=== PATIENT | male | born 1955 | race Hispanic/Latino ===

== ENCOUNTER 2017-04-18 14:12 | Emergency (ER) | payer MEDICAID, SELFPAY ==
[2017-04-18] MEDS ORDERED: Dexamethasone 4 mg/ml Vial ONE (16:13)
--- NOTE | 2017-04-19 00:39 | HP ---
HISTORY OF PRESENT ILLNESS: Mr. Gomez is a 61-year-old gentleman who presented to the [facility] Department for evaluation of an intracranial mass, it was found on a CT scan roughly a week ago. He was sent for an imaging that he had performed this morning. The radiologist read his imagi ng and had him come to the emergency department, given his findings. On talking to the family, ____ _, his clinical presentation is mostly concerned with changes in mentality, mentation, and attitude, then more recently one of his family members has noticed some changes in gait. Findings on both e CT and MRI show an extra-axial mass that homogeneously enhances likely originating from the dura o verlying the left frontal lobe. The lesion is expansive and compressive to the left frontal and par ietal lobes with a fair amount of vasogenic edema. The mass measures in maximum dimensions roughly 9 x 6 cm. Given its location and size, I think this is very likely the source of his issues. He is previously unaware of any mass after this point. PAST MEDICAL HISTORY: Hemorrhagic cerebrovascular accident, vascular clip in 01/2017. PAST SURGICAL HISTORY: No listed surgical history. CURRENT MEDICATIONS: Invokana, metformin, citalopram, Aricept as well as multivitamin. ALLERGIES: No known drug allergies. PHYSICAL EXAMINATION: GENERAL: The patient is alert and oriented x3. 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 He has a little bit of limitation to the left upper quadrant of his face in terms of facial motor function, but otherwise i s intact. HEENT: Pupils are equal, round, and reactive to light. Extraocular movements are intact. ASSESSMENT: Intracranial mass. PLAN: Discussed with the family and the patient at bedside extensively about his condition and that we will likely recommend not admitting him today, but since starting him on 4 mg of Decadron b.i.d. , he needs to be aware that this could very well affect his blood sugars and needs to be vigilant a= in following his numbers. I would like to repeat a Brainlab protocol MRI with and without contrast here at either [place] or [facility] on Friday and then plan for surgical resection from there. The gladys vargas is understanding and I answered all questions. The patient will be sent home this evening.
== END 2017-04-18 19:04 | disposition home or self-care (01) ==
LOC: ERS 14:12 → EEVIPCON 14:12 → ERS 19:04
DX: G93.89 Other specified disorders of brain (principal); E11.9 Type 2 diabetes mellitus without complications; E78.5 Hyperlipidemia, unspecified; F32.9 Major depressive disorder, single episode, unspecified; Z79.84 Long term (current) use of oral hypoglycemic drugs; Z79.899 Other long term (current) drug therapy
CPT/HCPCS: 96374; J1100

== ENCOUNTER 2017-04-21 14:16 | Outpatient (CLI) | payer MEDICAID, OTHER ==
[~2017-04-21 14:16] MED LIST: Gadobenate Dimeglumine 529 MG/ML (10ML VIAL) ONE
--- NOTE | 2017-04-21 16:50 | MRI ---
BRAIN MRI WITH AND WITHOUT CONTRAST: Date: 04/21/17 COMPARISON: 04/18/17. HISTORY: Left-sided mass, palpable abnormality in the left frontal scalp, mass lesion seen on prior imaging. TECHNIQUE: Multiplanar, multisequence MR imaging of the brain obtained with and without contrast. FINDINGS: There is a large, complex, lobulated, heterogeneous, extra-axial mass lesion in the left frontal reg ion. On precontrast T1-weighted imaging, it is primarily hypointense with numerous internal punctate foci of increased signal intensity which may signify punctate foci of hemorrhage and/or calcificati on. This lesion directly invades the left frontal calvarium with permeative calvarial destruction. T 2-weighted imaging demonstrates numerous flow-voids within this lesion, as well as within the fronta l calvarium overlying the lesion. There is severe associated mass effect and prominent associated va sogenic edema. There are numerous flow-voids within the adjacent brain parenchyma posterior and infe rior to the lesion suggesting numerous feeding arteries, as well as possibly draining veins. There i s severe associated left to right midline shift of at least 1.4 cm at the level of the septum pelluc idum anteriorly. The left anterior cerebral artery is deviated 1.9 cm across midline to the right. T his lesion demonstrates marked enhancement on postcontrast imaging. There is a portion of the lesion along its superolateral margin which demonstrates restricted diffusion suggesting high tumor cellul arity. The adjacent vasogenic edema involves the left frontal lobe and left temporal lobe, as well a s a portion of the medial right frontal lobe. No evidence for acute infarction is seen. The mass demonstrates diffuse heterogeneity on T2-weighted imaging, overall isointense on T2. Arterial flow-voids at the axial level of the skull base appear grossly unremarkable. The postcontrast imaging demonstrates the size of the complex enhancing extra-axial left frontal mas s to measure approximately 8.2 cm in AP dimension, 6.4 cm in transverse dimension, and 5.6 cm in wallpaper scraper niocaudal dimension. The lesion is inseparable from the anterior and superior aspect of the superior sagittal sinus. The imaged paranasal sinuses/mastoid air cells are well aerated. No additional enhancing lesions are noted. IMPRESSION: Large, enhancing, heterogeneous left-sided extra-axial mass with involvement of the adjacent calvari um. 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 Alternative consideration s would include an aggressive extra-axial metastatic lesion. There is prominent associated vasogenic edema and mass effect/midline shift. Results called to Dr. Butts at 1620 hours on 04/21/17. CODE CR. POS: TIFFANIE
== END 2017-04-21 14:17 | disposition home or self-care (01) ==
LOC: SCSMRI 14:16
PROVIDERS: ATTEND Neurological Surgery
DX: C71.9 Malignant neoplasm of brain, unspecified (principal)
CPT/HCPCS: 70553

== ENCOUNTER 2017-04-28 09:14 | Inpatient (IN) | payer OTHER, SELFPAY ==
[2017-04-28] MEDS ORDERED: Heparin 10,000 UNITS/1 ML VIAL ONE (09:55)
[2017-04-28] MEDS ORDERED: Iopamidol 370 76% 100 ML VIAL ONE (16:26)
[2017-04-28] MEDS ORDERED: Iopamidol 370 76% 50 ML VIAL FS ONE (16:26)
[2017-04-28] MEDS: Sodium Chloride 0.9% 1,000 ML IV SCH ×2 (19:40→23:55)
--- NOTE | 2017-04-28 19:54 | HP ---
HISTORY OF PRESENT ILLNESS: Mr. Gomez is a 61-year-old male who presents to our office with consultation after having personality changes, gait instability and subsequently found on an MRI scan of the brain with and without contrast at [place] a left frontal brain mass that is extra-axial and large in nature. The scan was discussed with the family and it looks like as it is a large extra- axial tumor with great deal of vascularity because of heterogenicity. Dr. Orantes discussed the plan to perform the left frontal approach to resect this large tumor. He answered questions at the time we had about the procedure and the expectations of moving forward. He originally saw Dr. Butts and Preston Sainz in the clinic and was referred to Dr. Orantes. PAST MEDICAL HISTORY: Include type 2 diabetes and history of hyperlipidemia. PAST SURGICAL HISTORY: No past surgical history. PSYCHIATRIC HISTORY: Includes depression. SOCIAL HISTORY: The patient denies any alcohol or drug use and has no smoking history. ALLERGIES: No known drug allergies. CURRENT MEDICATIONS: 1. Metformin 850 mg oral once a day. 2. Donepezil 5 mg oral once a day. 3. Citalopram 20 mg oral once a day. REVIEW OF SYSTEMS: Ten-point review of systems is completed and is otherwise negative unless stated in the above HPI. PHYSICAL EXAMINATION: VITAL SIGNS: Stable. GENERAL: The patient is alert and oriented x3, appears to be in no shortness of breath. HENT: Normocephalic and atraumatic. Hearing intact. Moist mucous membranes. Trachea midline. EYES: Pupils are equal and reactive to light. Extraocular muscles are intact. Sclerae are white and nonicteric. NECK: Patient has no signs of rigidity. Trachea is midline. RESPIRATORY: The patient has bilateral symmetric chest rise, appears to have no shortness of breath. CARDIOVASCULAR: The patient has regular rate and rhythm. Normal S1 and S2 heart sounds. There is no distal cyanosis or clubbing noted. EXTREMITIES: Upper extremity; patient has bilateral symmetric strength in the upper extremity. Brachial pulses and radial pulses in the upper extremities bilaterally are +2 and normal. There is normal range of motion. Lower extremity; the patient has bilateral symmetric strength in his lower extremity, range of motion is normal. NEUROLOGIC: Cranial nerves II-XII are grossly intact. His speech is fluent. He is oriented to person, place and time. There were no focal motor deficits; however, he was off balance and there have been some personality changes noted by family. ASSESSMENT: Mr. Gomez is a 61-year-old male with a large left frontal tumor that was found on MRI scan. PLAN: Dr. Orantes offered a left frontal craniotomy with tumor removal to help with his symptoms. He will first undergo an embolization of the tumor with Dr. Butts on 04/28/2017 and then the left frontal tumor will be removed on 04/29/2017. If there are any further questions, please feel free to contact Neurosurgery. The risks, benefits, and possible complications of surgery were discussed with the patient and he is in agreement with moving forward with the surgery despite the risks. THANIA
[2017-04-28] MEDS ORDERED: Citalopram 20 MG TAB PO SCH (21:00)
[2017-04-28] MEDS: Dexamethasone 4 MG TAB PO SCH (21:03)
[2017-04-29 00:35] VITALS: BMI 27.4
[2017-04-29] MEDS ORDERED: Midazolam HCl 2 mg/2 ml Vial ONE (06:04)
[2017-04-29] MEDS ORDERED: Fentanyl 250 MCG/5 ML VIAL ONE ×3 (06:04→12:52)
[2017-04-29] MEDS ORDERED: Lidocaine 1% w/Epinephrine 1:200K 30 ML VIAL ONE ×2 (06:22→08:44)
[2017-04-29] MEDS ORDERED: Bacitracin Zinc Ointment 30 gm TUBE ONE (06:24)
[2017-04-29] MEDS ORDERED: Thrombin 5000 UNITS/5 ML VIAL ONE ×3 (06:24→10:57)
[2017-04-29] MEDS ORDERED: Papaverine 60 MG/2 ML VIAL ONE (06:24)
[2017-04-29] MEDS ORDERED: Sodium Chloride 0.9% 20 ML ONE (06:24)
[2017-04-29] MEDS ORDERED: CEFAZOLIN 2 GM in Sodium Chloride 0.9% 100 ML IVPB ONE (06:40)
[2017-04-29] MEDS ORDERED: CEFAZOLIN/Water 2 GM/20 ML SYRINGE SLOW IVP SCH (06:50)
[2017-04-29] MEDS ORDERED: levETIRAcetam 1000 MG/100 ML PREMIX BAG ONE (07:03)
[2017-04-29] MEDS ORDERED: levETIRAcetam 500 MG/100 ML PREMIX BAG ONE (07:03)
[2017-04-29] MEDS ORDERED: Propofol 200 MG/20 ML VIAL ONE (07:22)
[2017-04-29] MEDS ORDERED: Vecuronium 10 MG VIAL ONE (07:22)
[2017-04-29] MEDS ORDERED: PHENYLEPHRINE-NS 100 MCG/ML 10 ML SYRINGE ONE (07:22)
[2017-04-29] MEDS ORDERED: Lidocaine 1% PF 5 ML VIAL ONE (07:22)
[2017-04-29] MEDS ORDERED: Dexamethasone 20 MG/5 ML VIAL ONE (07:22)
[2017-04-29] MEDS ORDERED: Ondansetron HCl/PF 4 MG/2 ML Vial ONE (07:22)
--- NOTE | 2017-04-29 07:26 | PRG ---
DATE OF SERVICE: 04/29/2017 I saw Mr. Gomez this morning. Dr. Roman Butts did embolization of his tumor yesterday. I met him in the clinic. He has a large aggressive extraaxial tumor affecting the left hemisphere. 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 He has a significant number of flow voids and surgical resection would be challenging. In the clinic, I reviewed all the risks, benefits, indications, alternatives, and expected outcomes from surgery. I answered questions briefly this morning and they are prepared for operative interve ntion today. We will take him to the operating room and I do not expect to be finished until late t onight.
[2017-04-29] MEDS ORDERED: Mannitol 12.5 GM/50 ML ONE ×2 (08:08→10:57)
[2017-04-29] MEDS ORDERED: Donepezil HCl 5 MG TAB PO SCH (09:00)
[2017-04-29] MEDS ORDERED: Sodium Chloride 0.9% 30 ML ONE (10:32)
[2017-04-29] MEDS ORDERED: CEFAZOLIN 1 GM VIAL ONE (12:39)
[2017-04-29] MEDS ORDERED: Ondansetron HCl/PF 4 MG/2 ML Vial IVP PRN (15:47)
[2017-04-29] MEDS ORDERED: Morphine 4 MG/ML Carpuject SLOW IVP PRN ×2 (15:47→16:21)
[2017-04-29] MEDS ORDERED: Docusate 100 MG CAP PO PRN (15:47)
[2017-04-29] MEDS ORDERED: Acetaminophen 325 MG TAB PO PRN (15:47)
[2017-04-29] MEDS ORDERED: hydrALAZINE 20 MG/ML VIAL SLOW IVP PRN (16:00)
[2017-04-29] MEDS: FLU VACC QS2017-18 36 mo. & older 0.5 ML SYRINGE IM ONE (16:04)
[2017-04-29] MEDS: Dexamethasone 4 MG TAB PO SCH (16:04)
[2017-04-29] MEDS: Sodium Chloride 0.9% 1,000 ML IV SCH (16:10)
[2017-04-29] MEDS ORDERED: Sedation Protocol FS ONE (16:18)
[2017-04-29] MEDS ORDERED: Lorazepam 2 MG/ML VIAL SLOW IVP PRN (16:21)
[2017-04-29] MEDS ORDERED: Fentanyl 20 MCG/ML 250 ML IVPB SCH (16:21)
[2017-04-29] MEDS ORDERED: DISCONTINUE PREVIOUS NARCOTIC PAIN MEDICATIONS AND BENZODIAZEPINES FS SCH (16:21)
[2017-04-29 16:23] LABS: Oxyhemoglobin 96.6 % (94.0-97.0); Sodium 138 mmol/L (135-148)
[2017-04-29 16:24] LABS: Mechanical Tidal Volume 500 ml; Mode SIMV; Pressure Support 10 cmH2O; Vent YES
[2017-04-29] MEDS ORDERED: Norepinephrine 8 MG/0.9% NS 250 ML ONE (16:48)
[2017-04-29] MEDS: Propofol 1,000 MG/100 ML VIAL IV PRN (16:55)
[2017-04-29] MEDS ORDERED: Norepinephrine 8 MG/250 ML BAG IVPB PRN (17:02)
[2017-04-29] MEDS ORDERED: Sodium Chloride 0.9% 1,000 ML IV SCH (17:15)
[2017-04-29 17:20] LABS: Hematocrit 43.4 % (42.0-52.0); Red Blood Cell (RBC) Count 4.97 mill/uL (4.70-6.10); White Blood Cell (WBC) Count 20.6 thou/uL (4.8-10.8)
[2017-04-29 17:39] LABS: Anion Gap 11 mmol/L (10-20); BUN (Urea Nitrogen) 19 mg/dL (8.4-25.7); Calc. Creatinine Clearance 102 mL/min (70-130); Calcium 8.4 mg/dL (7.8-10.44); Carbon Dioxide 21 mmol/L (22-29); Chloride 107 mmol/L (98-107); Estimated GFR-MDRD Greater than 90
[2017-04-29 17:46] LABS: Neutrophil 83 % (42-75)
[2017-04-29] MEDS: Dexamethasone 4 mg/ml Vial SLOW IVP SCH ×2 (17:51→23:58)
[2017-04-29] MEDS ORDERED: Dexamethasone 4 MG TAB PO SCH ×2 (18:00→21:00)
--- NOTE | 2017-04-29 19:43 | RAD ---
PORTABLE CHEST ONE VIEW: 04/29/17 at 5:17 p.m. HISTORY: Respiratory failure. FINDINGS/IMPRESSION: There is an endotracheal tube with tip at the origin of the right main bronchus. There is a right arauz bclavian central line with tip in the deep right atrium. No pneumothoraces or large effusions are se en. There are atelectatic changes in the left lung base. There is gaseous distention of the stomach. Findings were called over the telephone to the patient's nurse, Ivelisse Chun, at 5:24 p.m. POS: [facility]
[2017-04-29] MEDS ORDERED: STERILE WATER IV SCH (19:45)
[2017-04-29] MEDS ORDERED: SODIUM CHLORIDE IV SCH (19:45)
[2017-04-29] MEDS ORDERED: Citalopram 20 MG TAB PO SCH (21:00)
[2017-04-29] MEDS ORDERED: Non-Formulary Item 1 EACH (Insulin Degludec [Tresiba Flextouch U-100] 12 UNIT) SQ SCH (21:00)
[2017-04-29] MEDS ORDERED: PANTOPRAZOLE SODIUM 40 MG PO SCH (21:00)
[2017-04-29] MEDS: CEFAZOLIN/Water 2 GM/20 ML SYRINGE SLOW IVP SCH (22:19)
[2017-04-29] MEDS: Famotidine/PF 20 mg/2ml Vial SLOW IVP SCH (22:20)
--- NOTE | 2017-04-30 00:44 | CON ---
DATE OF CONSULTATION: 04/29/2017 HISTORY OF PRESENT ILLNESS: Mr. Gomez is a 61-year-old male, who reportedly had change in gait and personality recently. MRI showed left frontal brain mass. It was felt most likely be a malignant p rocess. He has undergone attempted embolization of his vascular tumor and today he has undergone re section. There is fair amount of blood loss in the OR, I have discussed this with the [employer]. He has been up to this point appropriately volume resuscitated in my opinion. He was transferred to the ICU, mechanically ventilated. PAST MEDICAL HISTORY: Remarkable for diabetes and lipid disorder. SOCIAL HISTORY: He is nonsmoker, nondrinker. PAST SURGICAL HISTORY: He has had (I am told) a traumatic amputation of his right upper extremity i n the distant past. MEDICATIONS: He is on metformin, donepezil and citalopram prior to admission. REVIEW OF SYSTEMS: Not obtainable. PHYSICAL EXAMINATION: VITAL SIGNS: Blood pressure is 94/61, heart rate is 190 in sinus rhythm, respiratory rate is 10-12 per mechanical ventilation, oximetry is 95%. GENERAL: He is still sedated from surgery, has bandage on his head. He is orally intubated. LUNGS: He has bilateral equal breath sounds. HEART: Regular rhythm. S1 and S2 are normal. ABDOMEN: Soft and nontender. EXTREMITIES: Without asymmetry. LABORATORY DATA: There is no recent lab in our system other than blood glucose. IMPRESSION: Postop mechanical ventilation after resection of a large vascular probably malignant br ain tumor. PLAN: Mechanical ventilation, steroids, nebulizer treatments, serial exams, sedation protocol. Chandrika rosurgery was requested. His blood pressure will be kept down, ideally I am told less than 120 syst olic.
--- NOTE | 2017-04-30 01:15 | OP ---
DATE OF PROCEDURE: 04/29/2017 NEUROSURGERY OPERATIVE REPORT SURGEON: Chace Orantes M.D. BLENDING MACHINE OPERATOR: Paulo Fam PA-C Brief assistance with Dr. Napoleon Sharpe PREOPERATIVE INDICATION: Make diagnosis to prevent neurological deterioration. PREOPERATIVE DIAGNOSIS: Large extraaxial lesion left hemisphere with mass effect on the left fronta l lobe. POSTOPERATIVE DIAGNOSIS: Large extraaxial lesion left hemisphere with mass effect on the left front al lobe. OPERATIVE PROCEDURES: BrainLAB stereotactic assisted craniotomy, resection of extraaxial tumor, rem oval of bone lesion, and cranioplasty for defect, diameter of 5 cm, operating microscope. PREOPERATIVE MEDICATION: Ancef 2 grams IV, Keppra 1000 mg IV, mannitol 62.5 g IV. DRAIN NUMBER: One. DRAIN TYPE: 10-Syriac Dave. DESCRIPTION OF PROCEDURE: The patient was brought to the operating room. General endotracheal anes thesia was induced. The patient was positioned supine on the operating table with his head turned s lightly to the right. The head was immobilized in [place] alexandru headholder. Using the preoperati ve BrainLAB protocol MRI scan, the BrainLAB system, and surface registration technique, we generated stereotactic navigational space around the patient's head. We verified our registration with surfa ce landmarks and found it to be excellent. We then planned curvilinear incision starting at the awng t of zygoma on the left, curving behind the hairline and then back again towards the midpoint of the forehead and then past midline behind the hairline on the left side as well. Under our planned inc ision, we infused local anesthetic with epinephrine. The scalp was sterilely prepped and draped. W e opened carefully with a 10 blade knife. Once through the skin, we used bipolar and monopolar caut neftaly to ensure excellent hemostasis given the large number of vessels coursing through the scalp. We used monopolar cautery to fold our scalp flap forward and held it in place under fishhook. We harv ested a piece of pericranium for a dural substitute and that was placed in bacitracin irrigation. W e fold the temporalis muscle inferiorly to allow us to place a javier hole at the frontal flores hole and the superior temporal line posteriorly, one in the midline of the forehead and one in the midline b ehind the coronal suture. We attempted to place javier holes with perforating bit, but the first javier hole was extremely bloody. Bone wax had to be used. We then used a ti javier to place all the other three javier holes. In a similar fashion, we attempted to use a router bit to cut our craniotom y, but the bone was again quite bloody, bone wax was needed and a 5 mm ti javier was used to fash ion our entire craniotomy. This was a long and tedious procedure, but in the end, we had excellent hemostasis of the bone in this fashion. Tumor had eroded through the bone in the left frontal regio n and as we folded the scalp flap off the field, we marked a 5-cm diameter section to remove prior t o replacement of the bone flap. The bone was placed in bacitracin irrigation as well. We immediate ly encountered tumor in the left frontal dura. This had eroded through the dura. We obtained hemos tasis carefully with bipolar cautery and then brought the operating microscope into the field. Under microscopic magnification and using microsurgical techniques, we carefully opened the dura. S imilar to the bone, there were numerous blood vessels coursing through the dura. We anticoagulated and cut carefully and circumferentially around the tumor. Once we had opened our dura parallel to o ur craniotomy opening 360 degrees around the tumor, we then turned our attention to the tumor resect ion. Using our [employer] navigation system, we identified the interface between tumor and brain easi ly. We started our dissection posteriorly and then laterally and then anteriorly. We developed a p sharron between edematous white matter and a large extraaxial lesion. As we dissected medially, there was some bleeding that needed more attention with bipolar cautery and pledgets of [place]. We contr olled this bleeding and noticed the tumor was beginning to swell a bit. We gave one more vial of ma nnitol. We placed silk sutures in the dura over the tumor and use this as retraction away from the brain. We then spread up our dissection, dissecting on the more firm surface of the tumor and coagu lating all the feeding vessels at the inferior margin of the tumor. We rolled this medially until w e encountered the dura of the interhemispheric falx. We then peeled the dura off the falx and the i nferior lateral portion of the superior sagittal sinus. There was some bleeding at the very last at tachment and then the specimen was freed. This was sent to pathology for histopathological diagnosi s. We irrigated copiously with bacitracin irrigation. Any brain swelling will be encountered durin g our resection abated quickly once the tumor resolved. Medially and laterally resection cavity had a bit of tumor left. We peeled that off the interhemispheric falx and the inferior portion of the superior sagittal sinus once again and controlled bleeding. Laterally, there was some tumor that tr act with the dura beyond her craniotomy flap for a few centimeters. We carefully, under the microsc ope, retracted the brain away from the dura and coagulated the surface of the dura where there was o bvious tumor. We coagulated copiously both in the epidural space and subdural space and replaced bi polar around the dura on both sides, any remaining dura was coagulated and charred in all directions so that no viable tumor cells were felt to be left. We irrigated copiously with bacitracin irrigat ion. The resection cavity had excellent hemostasis. We brought our periosteal tissue into the fiel d and sewed it in place in an interrupted fashion to the remnants of the dura. We then brought the craniotomy flap back into the field. With a routing bit, we cut out the tumor and then brought a wi re mesh in for cranioplasty. We fitted this to the defect and tacked it to the craniotomy bone with 4 mm titanium screws. [place] hole covers were replaced posteriorly on the craniotomy flap and then s crews were used to secure the flap to the patient's skull. We irrigated copiously with bacitracin i rrigation. We took the operating microscope out to the field before we placing the craniotomy flap. We tunneled the drain posteriorly through a separate stab incision. We reapproximated the tempora lis muscle. We closed the scalp in anatomic layers and we applied a sterile dressing. This was a c lean case and no contamination.
[2017-04-30 04:35] LABS: Band 1 % (5-11); Neutrophil 86 % (42-75); White Blood Cell (WBC) Count 17.8 thou/uL (4.8-10.8)
[2017-04-30 04:51] LABS: Anion Gap 8 mmol/L (10-20); BUN (Urea Nitrogen) 21 mg/dL (8.4-25.7); Calc. Creatinine Clearance 117 mL/min (70-130); Calcium 8.5 mg/dL (7.8-10.44); Carbon Dioxide 26 mmol/L (22-29); Chloride 109 mmol/L (98-107); Estimated GFR-MDRD Greater than 90
[2017-04-30] MEDS: Sodium Chloride 0.9% 1,000 ML IV SCH ×2 (05:24→20:30)
[2017-04-30] MEDS: CEFAZOLIN/Water 2 GM/20 ML SYRINGE SLOW IVP SCH ×3 (05:24→21:26)
[2017-04-30] MEDS: Dexamethasone 4 mg/ml Vial SLOW IVP SCH ×4 (06:06→23:22)
[2017-04-30 07:10] LABS: Oxyhemoglobin 97.3 % (94.0-97.0); Sodium 141 mmol/L (135-148)
[2017-04-30 07:12] LABS: Mechanical Tidal Volume 500 ml; Mode SIMV; Pressure Support 10 cmH2O; Vent YES
--- NOTE | 2017-04-30 07:13 | PRG ---
DATE OF SERVICE: 04/30/2017 Mr. Gomez is 1 day out from craniotomy for removal of a large extraaxial frontal lesion with bone er osion. He underwent stereotactic resection of the lesion as well as removal of a portion of the sku ll and cranioplasty. In the immediate postoperative hours there was some lability in the blood pressure. He received mae e IV fluid and boluses that leveled out and he has been neurologically well overnight. I am seeing Mr. Gomez this morning, he is awake. He is on the ventilator. He follows commands. En glish is his second language, but if I asked him in my limited Japanese to wiggle his fingers and toe s he does so quickly. He lifts the right arm stump off the bed as I show him what I want him to do. I do not find any new weakness. He is quite alert. I think he would be ready for extubation late r today. If he does well after extubation, remains stable until the afternoon, we will discuss sawyer sferring him to the general floor care if our critical care team agrees. We will taper him slowly o ff of Decadron over the next 4-8 days; he will remain on Keppra 500 b.i.d. and will await pathology to determine when and if postoperative radiation and/or chemotherapy might start.
[2017-04-30] MEDS ORDERED: metFORMIN 850 MG TAB PO SCH (08:00)
[2017-04-30] MEDS: Propofol 1,000 MG/100 ML VIAL IV PRN (08:22)
[2017-04-30] MEDS: Famotidine/PF 20 mg/2ml Vial SLOW IVP SCH ×2 (08:22→21:24)
--- NOTE | 2017-04-30 08:47 | RAD ---
PORTABLE AP CHEST: Date: 04-30-17 History: On ventilator, follow up evaluation. Comparison: 04-29-17 FINDINGS: Endotracheal tube is again noted in place but has been withdrawn with the tip now overlying T4 verte bral body above the level of the jessica. Right subclavian central venous catheter with tip overlying the right atrium. This exam is obtained in a shallow depth of inspiration accentuating the bronchov ascular markings. However, there is patchy increased parenchymal density in the retrocardiac region left lung base which may be related to atelectasis although pneumonia or aspiration pneumonitis romeo ot be excluded. There is atelectasis present at each lung base. No other interval change. IMPRESSION: 1. Patchy parenchymal opacity in the retrocardiac region left lung base which could be related to at electasis, pneumonia, or aspiration pneumonitis. Continued follow up is recommended. 2. Atelectasis at each lung base. 3. Endotracheal tube again noted in place but has been withdrawn and is now above the level of the c jarred. POS: [facility]
[2017-04-30] MEDS ORDERED: DONEPEZIL HCL 5 MG PO SCH (09:00)
[2017-04-30] MEDS ORDERED: Non-Formulary Item 1 EACH (Canagliflozin [Invokana] 100 MG) PO SCH (09:00)
[2017-04-30 09:19] LABS: Oxyhemoglobin 96.6 % (94.0-97.0); Sodium 137 mmol/L (135-148)
[2017-04-30 09:19] LABS: Oxyhemoglobin 97.2 % (94.0-97.0); Sodium 140 mmol/L (135-148)
[2017-04-30 09:19] LABS: Oxyhemoglobin 96.6 % (94.0-97.0); Sodium 139 mmol/L (135-148)
[2017-04-30 09:19] LABS: Oxyhemoglobin 96.2 % (94.0-97.0); Sodium 134 mmol/L (135-148)
[2017-04-30 09:34] LABS: Mode OR ABG; Vent YES
[2017-04-30 09:34] LABS: Mode OR ABG; Vent YES
[2017-04-30 09:34] LABS: Mode OR ABG; Vent YES
[2017-04-30 09:35] LABS: Mode OR ABG; Vent YES
--- NOTE | 2017-04-30 11:04 | PRG ---
DATE OF SERVICE: 04/30/2017 SUBJECTIVE: Mr. Gomez is a 61-year-old male who I saw in his room this morning. He is doing well. He is able to follow commands. There have been no acute events overnight in his neurologic status. There are no new deficits in his neurologic status noted. He is able to follow my finger with his eyes in all directions. He is able to raise his right arm and right hand to command. He is able to grasp my hand with his left hand on command. Yesterday, he had a sodium of 135. Bolus of 1.5 normal saline was given, 300 mL, which raised his sodium to 139. His vital signs overnight have been stable and he has had to have small amount of Levophed to keep his blood pressure elevated and even a low -dose of propofol. He is easily to awaken on the low-dose propofol. Today, we will work with physical therapy, and have him whenever critical care thinks it is safe to extubate, he can be extubated. We will keep him on Keppra for seizure prophylaxis and we will continue antibiotics, as the drain is still in place. If there are any further questions, please feel free to contact Neurosurgery. THANIA
[2017-04-30] MEDS ORDERED: Dextrose 5% in Water 1,000 ML IV PRN (16:21)
[2017-04-30] MEDS ORDERED: Dextrose 50% Abboject 50 ML SYRINGE IVP PRN (16:21)
--- NOTE | 2017-04-30 17:20 | PRG ---
DATE OF SERVICE: 04/30/2017 SUBJECTIVE: Mr. Guillermo Gomez was evaluated this morning. He is mechanically ventilated. He underwen t a spontaneous breathing trial. His pressure support turned down to 10 and his PEEP of 5, then his pressure support turned down to 5 and his PEEP is 0. He never became tachypneic. His minute volum e remains 7-8 liters a minute. He had no significant secretions. OBJECTIVE: GENERAL: He is awake and alert. VITAL SIGNS: Heart rate 72, respiratory rate 16, oximetry is 99% and blood pressure 106/74. LUNGS: Clear. HEART: Regular rhythm. ABDOMEN: Soft. LABORATORY DATA: White count 17.8, hemoglobin 14 and platelets 155. Sodium 139, potassium 4.1, chl oride 109, bicarbonate 26, BUN 21 and creatinine 0.7. Intake and output was positive 1196. IMPRESSION AND PLAN: Postoperative mechanical ventilation after resection of vascular brain tumor. Pray he was stable for extubation. This has been done successfully. He has been examined several times since then he remained stable. No respiratory distress. Critical care time was 35 minutes.
[2017-04-30] MEDS: INVOKANA 100 MG PO SCH ×2 (20:32→20:33)
[2017-04-30] MEDS: TRESIBA SC SCH ×2 (20:33→20:34)
[2017-04-30] MEDS: Insulin Regular 300 UNITS/3 ML VIAL SC PRN (22:16)
[2017-05-01] MEDS: CEFAZOLIN/Water 2 GM/20 ML SYRINGE SLOW IVP SCH ×3 (04:03→22:06)
[2017-05-01 04:47] LABS: Anion Gap 6 mmol/L (10-20); BUN (Urea Nitrogen) 23 mg/dL (8.4-25.7); Calc. Creatinine Clearance 140 mL/min (70-130); Calcium 8.3 mg/dL (7.8-10.44); Carbon Dioxide 27 mmol/L (22-29); Chloride 107 mmol/L (98-107); Estimated GFR-MDRD Greater than 90
[2017-05-01] MEDS: Dexamethasone 4 mg/ml Vial SLOW IVP SCH ×4 (05:09→23:41)
[2017-05-01 05:12] LABS: Hematocrit 32.5 % (42.0-52.0); Mean Platelet Volume 9.4 fL (7.4-10.4); Neutrophil 92 % (42-75); Red Blood Cell (RBC) Count 3.71 mill/uL (4.70-6.10); White Blood Cell (WBC) Count 14.4 thou/uL (4.8-10.8)
--- NOTE | 2017-05-01 06:54 | PRG ---
DATE OF SERVICE: 05/01/2017 Mr. Gomez is a 61-year-old male who I saw in his room this morning. He has been transferred to [facility] in ICU. He is status post left-sided craniotomy with tumor resection. This morning, he is able to follow commands. On physical exam he is able to wiggle his toes, move his legs, grasp my hands with his hands and he can lift his left arm up. His pupils are equal and reactive to light and he is ab le to follow my finger in all visual hester. Yesterday he was up with physical therapy. He is able to stand on his own and he was able to sit in a chair. Since we are not using the central line and Cabrera and he is able to stand, we can discontinue the central line and discontinue the Cabrera. Cont inue him on Keppra 500 mg p.o. b.i.d. for seizure prophylaxis. Overnight, his vital signs have been stable and there have been no acute events. His neurologic exam is improving. If there are any further questions, please feel free to contact Neurosurgery. In the meantime, he c an work with physical therapy, continue that today and he can be up as much as possible in the chair .
--- NOTE | 2017-05-01 07:33 | PRG ---
DATE OF SERVICE: 05/01/2017 Mr. Gomez is 2 days out from removal of a large extraaxial lesion causing pressure on his left front al lobe. He is doing well in the ICU. We will remove the drain today and I think he will be safe f or transfer to the floor care. He will begin getting up and out of bed and moving with physical the rapy. Once he is ambulatory, tolerating a general diet, and safe for his activities of daily living he can be discharged home. Follow up will be in our clinic after pathology is available. We will check an incision in 2 weeks. We will make arrangements for Radiation Oncology appointments and Onc ology if needed.
[2017-05-01] MEDS: Sodium Chloride 0.9% 1,000 ML IV SCH ×2 (08:16→23:40)
[2017-05-01] MEDS: Famotidine/PF 20 mg/2ml Vial SLOW IVP SCH (08:17)
--- NOTE | 2017-05-01 09:19 | RAD ---
PORTABLE AP CHEST X-RAY 05/01/17 HISTORY: Extubated. Followup evaluation. FINDINGS: Right subclavian central venous catheter remains in place and unchanged in position. Endotracheal tu be has been removed. This exam is obtained in a shallow depth of inspiration accentuating the cardia c silhouette and bronchovascular markings. There is patchy parenchymal density in the left mid lung zone and linear densities left lung base probably related to atelectasis, but followup evaluation is recommended with better depth of inspiration. Lungs are otherwise clear. No other interval change. IMPRESSION: 1. Interval removal of endotracheal tube. 2. Patchy parenchymal changes at the left lung base probably related to atelectasis, and this e xam was obtained in a shallow depth of inspiration. Followup chest x-ray with better depth of inspir ation is suggested. POS: MED
[2017-05-01] MEDS: Insulin Regular 300 UNITS/3 ML VIAL SC PRN ×2 (16:08→22:13)
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
[2017-05-01] MEDS: levETIRAcetam 500 MG TAB PO SCH (22:09)
[2017-05-02] MEDS: Dexamethasone 4 mg/ml Vial SLOW IVP SCH ×3 (05:30→18:34)
[2017-05-02] MEDS: CEFAZOLIN/Water 2 GM/20 ML SYRINGE SLOW IVP SCH ×3 (05:30→20:09)
[2017-05-02 05:42] LABS: Anion Gap 11 mmol/L (10-20); BUN (Urea Nitrogen) 18 mg/dL (8.4-25.7); Calc. Creatinine Clearance 147 mL/min (70-130); Calcium 8.4 mg/dL (7.8-10.44); Carbon Dioxide 24 mmol/L (22-29); Chloride 104 mmol/L (98-107); Estimated GFR-MDRD Greater than 90
[2017-05-02 05:51] LABS: Band 1 % (5-11); Hematocrit 31.9 % (42.0-52.0); Mean Platelet Volume 9.5 fL (7.4-10.4); Metamyelocyte 1 % (0-0); Neutrophil 83 % (42-75); Reactive Lymphocytes 1 % (0-10); Red Blood Cell (RBC) Count 3.68 mill/uL (4.70-6.10); White Blood Cell (WBC) Count 13.4 thou/uL (4.8-10.8)
[2017-05-02] MEDS: Insulin Regular 300 UNITS/3 ML VIAL SC PRN (06:52)
--- NOTE | 2017-05-02 07:45 | PRG ---
DATE OF SERVICE: 05/02/2017 Mr. Gomez is a 61-year-old male who is status post left frontal craniotomy and tumor resection. He has been doing well overnight and his blood pressure has been normal. Vital signs have been stable. There are no new neurologic deficits on exam. He has been able to ambulate in the room, tolerate a regular diet and his pain has been well controlled with pain medication. I will send him likely h ome today if he is doing well with physical therapy, walking in the [place]. I will send him home with a prescription for Tylenol #3 and Keppra 500 mg p.o. b.i.d. If there are any further questions, please feel free to contact Neurosurgery. I will put in the dis charge orders today. Please have the nursing staff call when he is ready to be discharged. If there are further questions, please feel free to contact Neurosurgery. He will need marcel card in 2 weeks and follow up in our office with me.
--- NOTE | 2017-05-02 07:51 | PRG ---
DATE OF SERVICE: 05/02/2017 NEUROSURGERY PROGRESS NOTE SUBJECTIVE: Mr. Gomez has been transferred out of the ICU. He is sitting at bedside, watching tele vision this morning, and speaking with his . I do not find any new neurological deficits. He i s more alert and interactive than he was prior to his surgery. His incision seems to be healing wel l and the drain site is not leaking. Mr. Gomez is doing well enough for discharge. We will continue Keppra twice a day and taper Decadro n over the next 3-5 days until that is off as well. Pathology report ought to be finalized by the nichole desai we see him back in clinic and we can make arrangements for radiation therapy if needed therejeannie nichols
[2017-05-02] MEDS: levETIRAcetam 500 MG TAB PO SCH ×2 (08:56→20:09)
[2017-05-02] MEDS: FLU VACC QS2017-18 36 mo. & older 0.5 ML SYRINGE IM ONE (09:02)
[2017-05-02] MEDS: Sodium Chloride 0.9% 1,000 ML IV SCH (18:34)
[2017-05-03] MEDS: Sodium Chloride 0.9% 1,000 ML IV SCH (02:08)
[2017-05-03] MEDS: Dexamethasone 4 mg/ml Vial SLOW IVP SCH ×2 (05:33)
[2017-05-03 06:29] LABS: Hematocrit 34.9 % (42.0-52.0); Mean Platelet Volume 9.2 fL (7.4-10.4); Neutrophil 85 % (42-75); Red Blood Cell (RBC) Count 4.02 mill/uL (4.70-6.10); White Blood Cell (WBC) Count 13.5 thou/uL (4.8-10.8)
[2017-05-03 06:40] LABS: Anion Gap 12 mmol/L (10-20); BUN (Urea Nitrogen) 15 mg/dL (8.4-25.7); Calc. Creatinine Clearance 147 mL/min (70-130); Calcium 8.8 mg/dL (7.8-10.44); Carbon Dioxide 22 mmol/L (22-29); Chloride 105 mmol/L (98-107); Estimated GFR-MDRD Greater than 90
[2017-05-03 08:13] VITALS: BP 115/72; TEMP 98
--- NOTE | 2017-05-03 11:11 | PRG ---
DATE OF SERVICE: 05/03/2017 NEUROSURGERY PROGRESS NOTE SUBJECTIVE: Mr. Gomez is still in the hospital. His family tells me that before surgery he was not interested in talking or doing much and he did not pay any attention to his surroundings. Now, he is more verbose and is more awake. He is interactive, but he is a little bit disinhibited. He gets angry quicker. He assesses things that are a little bit off color for him. At times there were so me word finding difficulties. I reassured the family that this is all anticipated with frontal lobe injury and the amount of compr ession and dysfunction related to having the tumor. Mr. Gomez also says he is beginning to have mae e shingles-like pain around his left flank. He has had shingles before and now he is on steroids fo r swelling and it is likely recurrence thereof. I offered him a Valtrex prescription to go along wi th his Decadron taper, his antacids and his Keppra medication for discharge. Follow up will be bobo tomas in our office. Yesterday, I searched for final pathology report and did not see it and it is s till not available today.
--- NOTE | 2017-05-05 08:37 | DIS ---
DATE OF ADMISSION: 04/28/2017 DATE OF DISCHARGE: 05/03/2017 ADMISSION DIAGNOSES: Large extraaxial lesion left hemisphere with mass effect on the left frontal l obe. DISCHARGE DIAGNOSES: Large extraaxial lesion left hemisphere with mass effect on the left frontal l obe; however, the mass has been resected and the patient is stable upon discharge. DISCHARGE CONDITION: The patient is stable. He is able to tolerate a regular diet. Pain is well c ontrolled with pain medication. He was able to ambulate with assistance in the [place]. CONSULTATIONS: Physical therapy. PROCEDURES: BrainLAB sterotactic assisted craniotomy, resection of extraaxial tumor, removal of bon e lesion and cranioplasty for defect, diameter of 5 cm, operating microscope. Embolization of the l eft frontal extra-axial tumor by Dr. Butts. HISTORY OF PRESENT ILLNESS: Mr. Gomez is a 61-year-old male who presented with personality changes, gait instability and subsequently found a brain tumor on MRI scan in the left frontal brain that is extraaxial in nature. Because the tumor was very vascular and heterogenicity, Dr. Orantes, discussed a plan to perform t he left frontal approach to resect the tumor; however, Dr. Butts was going to embolize the tumor bef ore dissection. HOSPITAL COURSE: Over the course of his hospital stay, the patient did well. There were no acute e vents during his hospital stay. DISCHARGE PHYSICAL EXAMINATION: HEENT: Normocephalic, atraumatic. Hearing intact. Moist mucous membranes. Trachea is midline. EYES: Pupils are equal and reactive to light. Extraocular muscles are intact. Sclerae is white, n onicteric. MUSCULOSKELETAL: The patient has 5/5 strength in the upper and lower extremities bilaterally. RESPIRATORY: The patient has bilateral symmetric chest rise, appears to have no shortness of breath . CARDIOVASCULAR: Regular rate and rhythm, normal S1, S2 heart sounds. Patient has no distal cyanosi s or clubbing. NEUROLOGIC: Cranial nerves II-XII are grossly intact. Speech is fluent. He answers my questions a ppropriately. ACTIVITY: The patient can have regular activity with no vigorous activity for 2 weeks. DIET: The patient can have a heart healthy diet. HOME MEDICATIONS: 1. Valacyclovir 1000 mg p.o. t.i.d. 2. Tylenol #3 one to two tablets p.o. q.4 hours p.r.n. 3. Dexamethasone 4 mg p.o. as directed. 4. Insulin Dexacen 4 units subcutaneous at bedtime. 5. Invokana 100 mg p.o. daily. 6. Glucophage 550 mg p.o. q.a.m. with meals. 7. Pantoprazole sodium 40 mg p.o. b.i.d. 8. Citalopram 20 mg p.o. at bedtime. 9. Donepezil HDL 5 mg p.o. daily. 10. Keppra 500 mg p.o. b.i.d.
--- NOTE | 2017-05-21 15:00 | CCL ---
RADIOLOGY PROCEDURE NOTE: Date: 04/28/17 SURGEON: Hay Butts M.D. BOAT LOADER: None. INDICATION: Preoperative embolization. DIAGNOSIS: Large left frontotemporal extra-axial lesion. ANESTHESIA: Local. PROCEDURE: Cerebral angiography with particle embolization of tumor. TECHNIQUE: The patient was brought into the angiogram suite and placed on the table in the supine position. Bot h groins were prepped and draped in the usual sterile fashion. 1% lidocaine was injected into the formerly [facility] groin. A 5 Angolan Micropuncture set was then used to gain access to the right common femoral art neftaly. Using the Seldinger technique, a 6 Angolan sheath was placed. A 6 Angolan Aplica guide catheter wa s passed over a Be my eyes wire advanced into the left common carotid artery. It was then advanced into the left internal carotid artery where an AP and lateral angiogram was performed. It was then advan monique into the left external carotid artery where an AP and lateral angiogram was performed. Rebar 18 microcatheter passed of a transient microguidewire was advanced into the external common carotid art neftaly where the branches of the internal maxillary artery and branches of the superficial temporal art neftaly were selectively catheterized and particle embolization was deployed in order to reduce blood fl ow to the patient's extraaxial lesion. Catheter was then removed. Hemostasis was maintained througho ut. The procedure came to an end without complication. FINDINGS/IMPRESSION: The patient underwent successful angiograph and successful particle embolization. A significant port ion of the patient's tumor arterial supply does emanate from branches of the internal carotid artery through which there were no embolization procedures performed. Embolization of the external carotid artery was performed via PVA particle embolization without known complication.
== END 2017-05-03 09:00 | disposition home or self-care (01) | DRG 27 ==
LOC: CCL 09:14 → EDSTATUS 10:17 → IMCU/EMU 14:00 → CCU 04-29 07:10 → SURG A 05-01 18:27
PROVIDERS: ADMIT Neurological Surgery; ATTEND Neurological Surgery
PROC: 03L Upper Arteries, Occlusion (ICD-10-PCS; 2017-04-28)
PROC: B3171ZZ Fluoroscopy of Left Internal Carotid Artery using Low Osmolar Contrast (ICD-10-PCS; 2017-04-28)
PROC: B31B1ZZ Fluoroscopy of Left External Carotid Artery using Low Osmolar Contrast (ICD-10-PCS; 2017-04-28)
PROC: 00B70ZZ Excision of Cerebral Hemisphere, Open Approach (ICD-10-PCS; principal; 2017-04-29)
PROC: 0NU10JZ Supplement Frontal Bone with Synthetic Substitute, Open Approach (ICD-10-PCS; 2017-04-29)
PROC: 5A1945Z Respiratory Ventilation, 24-96 Consecutive Hours (ICD-10-PCS; 2017-04-29)
DX: C71.1 Malignant neoplasm of frontal lobe (principal); B02.9 Zoster without complications; E11.9 Type 2 diabetes mellitus without complications; E78.5 Hyperlipidemia, unspecified; Z79.84 Long term (current) use of oral hypoglycemic drugs; F32.9 Major depressive disorder, single episode, unspecified; Z23 Encounter for immunization
CPT/HCPCS: 36415; 36416; 36430; 61624; 71010; 80048; 82805; 85007; 85025; 85027; 86850; 86900; 86901; 88307; 88311; 88325; 88331; 88334; 88341; 88342; 90471; 90682; 94002; 94003; 94640; A4216; A4217; C1713; G0008; G8978-GP-CM; G8979-GP-CJ; G8987-GO-CM; G8988-GO-CJ; J0690; J1100; J1644; J1815; J1953; J2001; J2150; J2250; J2270; J2405; J2440; J2704; J3010; J3490; J7050; J7620; J8540; P9016; P9059; Q2036; S0028

== ENCOUNTER 2017-06-05 17:32 | Emergency (ER) | payer SELFPAY ==
[2017-06-05] MEDS ORDERED: diphenhydrAMINE 50 MG/ML VIAL ONE (20:43)
[2017-06-05] MEDS ORDERED: Metoclopramide HCl 10 MG/2 ML VIAL ONE (20:43)
[2017-06-05 20:50] LABS: #Basophils 0.1 thou/uL (0.0-0.2); #Eosinphils 0.1 thou/uL (0.0-0.7); #Lymphocytes 2.4 thou/uL (1.20-3.40); #Monocytes 0.8 thou/uL (0.11-0.59); #Neutrophils 5.3 thou/uL (1.40-6.50); %Basophils 0.9 % (0.0-1.0); %Eosinophils 0.8 % (0.0-10.0); %Lymphocytes 27.5 % (21.0-51.0); %Monocytes 9.4 % (0.0-10.0); Hematocrit 41.9 % (42.0-52.0); Mean Platelet Volume 8.5 fL (7.4-10.4); Red Blood Cell (RBC) Count 4.67 mill/uL (4.70-6.10); White Blood Cell (WBC) Count 8.6 thou/uL (4.8-10.8)
[2017-06-05 21:12] LABS: ALT (SGPT) 14 U/L (8-55); AST (SGOT) 35 U/L (5-34); Alkaline Phosphatase 90 U/L (40-150); Anion Gap 13 mmol/L (10-20); BUN (Urea Nitrogen) 18 mg/dL (8.4-25.7); Bilirubin, Total 0.3 mg/dL (0.2-1.2); Calc. Creatinine Clearance 0 mL/min (70-130); Calcium 9.2 mg/dL (7.8-10.44); Carbon Dioxide 21 mmol/L (22-29); Chloride 109 mmol/L (98-107); Estimated GFR-MDRD Greater than 90; Globulin 3.4 g/dL (2.4-3.5); Protein, Total 7.3 g/dL (6.0-8.3)
--- NOTE | 2017-06-05 21:31 | CT ---
CT HEAD WITHOUT CONTRAST: History: Headache, recent brain tumor removal. FINDINGS: Post-operative changes at the left frontal level are apparent with removal of the large mass from the MRI on 04-21-17. Minimal residual subarachnoid and subdural hemorrhage remain at the post-operative s ite. There is minimal mass effect. Ventricles appear normal in size, shape, and position. IMPRESSION: 1. Recent post-operative changes of the left frontal lobe without evidence of complication. POS: EWA
[2017-06-06 00:06] LABS: Anion Gap 11 mmol/L (10-20); BUN (Urea Nitrogen) 17 mg/dL (8.4-25.7); Calc. Creatinine Clearance 0 mL/min (70-130); Calcium 8.8 mg/dL (7.8-10.44); Carbon Dioxide 22 mmol/L (22-29); Chloride 111 mmol/L (98-107); Estimated GFR-MDRD Greater than 90
== END 2017-06-06 00:32 | disposition home or self-care (01) ==
LOC: ERS 17:32
DX: G89.18 Other acute postprocedural pain (principal); R51 Headache; E11.9 Type 2 diabetes mellitus without complications; E78.5 Hyperlipidemia, unspecified; F32.9 Major depressive disorder, single episode, unspecified
CPT/HCPCS: 36415; 70450; 80053; 85025; 93005; 96361; 96374; 96375; J1200; J2765

== ENCOUNTER 2017-08-19 10:24 | Outpatient (CLI) | payer MEDICAID, OTHER, SELFPAY ==
[2017-08-19 11:54] LABS: Estimated GFR-MDRD - POC Greater than 90
--- NOTE | 2017-08-19 14:11 | MRI ---
MRI BRAIN WITH AND WITHOUT CONTRAST: DATE: 08/19/2017 HISTORY: A 61-year-old male with a diagnosis of D33.2. Benign neoplasm of brain. COMPARISON: MRI of 04/21/2017. TECHNIQUE: Multiple sequences obtained in axial, sagittal, and coronal planes; pre and post IV injection of gado linium-based contrast agent: MultiHance 16 mL. FINDINGS: The previously demonstrated large left upper frontal tumor mass has been removed. There are overlyin g left frontal craniotomy changes. There is a moderately large region of underlying left frontal lob e encephalomalacia and gliosis. There are hemosiderin stains in this region of encephalomalacia and gliosis. There is an approximately 2 x 1.5 x 1 cm region of irregular rim enhancement occupying the region of the left frontal encephalomalacia and gliosis, contiguous with the enhancing post surgical extraaxial scar tissue that abuts the undersurface of the left frontal bone flap. There is a segment of the left frontal bone flap that is absent. There is ex vacuo dilation of the frontal horn of the left lateral ventricle. There is no obstructive hydrocephalus. There are no other areas of abnorma l enhancement, mass effect, midline shift, or obstructive hydrocephalus. No dural venous sinus throm bosis. Flow voids are grossly maintained in the major arteries of the [place] of [place]. IMPRESSION: 1. Status post left frontal craniotomy, with surgical removal of the previously demonstrated large l eft frontal intracranial tumor mass. 2. Moderately large region of encephalomalacia and gliosis in the left frontal lobe, deep to the scrap charger niotomy. 3. Irregular enhancement within the central portion of the encephalomalacia and gliosis. This is no nspecific and could represent post surgical scar tissue, radiation necrosis, or recurrent or residual neoplasm (although this appears very different from the original tumor). 4. No intracranial mass effect. 5. Continued serial follow-up MRIs are recommended. JUAN Bernal POS: EWA
== END 2017-08-19 10:25 | disposition home or self-care (01) ==
LOC: SCSMRI 10:24
PROVIDERS: ATTEND Neurological Surgery
DX: D33.2 Benign neoplasm of brain, unspecified (principal); G93.89 Other specified disorders of brain; Z98.890 Other specified postprocedural states
CPT/HCPCS: 70553; 82565

== ENCOUNTER 2019-03-29 11:06 | Emergency (ER) | payer OTHER, SELFPAY ==
[~2019-03-29 11:06] MED LIST changes: +Gadobenate Dimeglumine 529 MG/1 ML (20ML VIAL) ONE; -Gadobenate Dimeglumine 529 MG/ML (10ML VIAL) ONE
[2019-03-29] MEDS ORDERED: Acetaminophen 500 MG TAB ONE (12:25)
[2019-03-29 12:39] LABS: PTT 29.7 SEC (22.9-36.1); Prothrombin Time 13.2 SEC (12.0-14.7)
[2019-03-29 12:42] LABS: #Basophils 0.1 thou/uL (0.0-0.2); #Eosinphils 0.2 thou/uL (0.0-0.7); #Monocytes 0.5 thou/uL (0.11-0.59); #Neutrophils 8.5 thou/uL (1.40-6.50); %Eosinophils 1.3 % (0.0-10.0); %Monocytes 4.8 % (0.0-10.0); %Neutrophils 74.9 % (42.0-75.0); Giant Platelets SLIGHT; Hemoglobin 15.2 g/dL (14.0-18.0); Large Platelets SLIGHT; MDiff Complete? YES; Mean Corpuscular HGB CONC 34.3 g/dL (32.0-36.0); Mean Corpuscular Hemoglobin 28.4 pg (27.0-31.0); Mean Corpuscular Volume 82.7 fL (78.0-98.0); Mean Platelet Volume 13.6 fL (7.4-10.4); Platelet Count 174 thou/uL (130-400); Platelet Morphology Comment Appears Adequate; RBC Distribution Width 12.8 % (11.5-14.5); Red Blood Cell (RBC) Count 5.35 mill/uL (4.70-6.10); White Blood Cell (WBC) Count 11.4 thou/uL (4.8-10.8)
[2019-03-29 12:48] LABS: ALT (SGPT) 26 U/L (8-55); AST (SGOT) 16 U/L (5-34); Albumin 4.2 g/dL (3.4-4.8); Alkaline Phosphatase 124 U/L (40-150); Anion Gap 13 mmol/L (10-20); BUN (Urea Nitrogen) 11 mg/dL (8.4-25.7); Bilirubin, Total 0.5 mg/dL (0.2-1.2); Calc. Creatinine Clearance 0 mL/min (70-130); Calcium 9.3 mg/dL (7.8-10.44); Carbon Dioxide 25 mmol/L (23-31); Chloride 105 mmol/L (98-107); Estimated GFR-MDRD 81; Glucose 321 mg/dL (80-115); Protein, Total 7.2 g/dL (5.8-8.1); Sodium 139 mmol/L (136-145)
--- NOTE | 2019-03-29 14:48 | MRI ---
BRAIN MRI WITH AND WITHOUT CONTRAST: Date: 03/29/19 COMPARISON: 08/19/17. HISTORY: Headache, numbness, history of brain tumor resection. TECHNIQUE: Multiplanar, multisequence MR imaging of the brain obtained with and without contrast. FINDINGS: There is evidence of prior left frontal craniotomy. The diffusion-weighted imaging demonstrates no ev idence for acute infarction. The axial gradient echo imaging demonstrates no evidence for intracranial hemorrhage. There is increased T2/FLAIR signal within the periventricular deep and subcortical white matter of th e left frontal lobe subjacent to the left frontal craniectomy consistent with postoperative change/en cephalomalacia. When compared to the 08/29/17 examination, these findings are stable. There is partial opacification of the ethmoid air cells and the sphenoid sinus on the left, new. Ther e is new near complete opacification of the left maxillary sinus. Arterial flow-voids at the axial level of the skull base appear grossly unremarkable on the T2-weight ed imaging. The postcontrast imaging demonstrates no abnormal enhancement within the brain parenchyma. There is m inimal focal dural thickening and dural enhancement in the postoperative region, best seen on axial i mage 136 measuring 5 mm in transverse dimension, and on sagittal image 20 measuring 4 mm in craniocau jocelyn dimension. This enhancement is much less conspicuous than on the 08/19/17 exam. IMPRESSION: 1. Postoperative changes within the left frontal region with mild regional dural thickening and enha ncement. Dural enhancement has improved since the prior examination. No intra-axial enhancement, acut e infarction, or intracranial hemorrhage. 2. New left-sided paranasal sinus disease. POS: OFF
== END 2019-03-29 14:45 | disposition home or self-care (01) ==
LOC: SCSER 11:06
DX: J32.9 Chronic sinusitis, unspecified (principal); R20.2 Paresthesia of skin; E78.5 Hyperlipidemia, unspecified; E78.1 Pure hyperglyceridemia; E11.9 Type 2 diabetes mellitus without complications; I10 Essential (primary) hypertension; F32.9 Major depressive disorder, single episode, unspecified; Z98.890 Other specified postprocedural states; Z79.84 Long term (current) use of oral hypoglycemic drugs
CPT/HCPCS: 70553; 80053; 85025; 85610; 85730; 93005; A9577

== ENCOUNTER 2019-12-13 10:11 | Emergency (ER) | payer SELFPAY ==
[~2019-12-13 10:11] MED LIST changes: -Gadobenate Dimeglumine 529 MG/1 ML (20ML VIAL) ONE; +Iopamidol-370 76% 500 ML 1 ML ONE
[2019-12-13] MEDS ORDERED: Ondansetron PF 4 MG/2 ML Vial ONE (10:53)
[2019-12-13] MEDS ORDERED: Fentanyl 100 MCG/2 ML VIAL ONE (10:53)
[2019-12-13 11:19] LABS: #Basophils 0.1 thou/uL (0.0-0.2); #Eosinphils 0.3 thou/uL (0.0-0.7); #Lymphocytes 3.2 thou/uL (1.20-3.40); #Monocytes 0.6 thou/uL (0.11-0.59); #Neutrophils 4.5 thou/uL (1.40-6.50); %Basophils 1.5 % (0.0-1.0); %Eosinophils 2.9 % (0.0-10.0); %Lymphocytes 36.4 % (21.0-51.0); %Monocytes 7.3 % (0.0-10.0); %Neutrophils 51.9 % (42.0-75.0); Hemoglobin 15.3 g/dL (14.0-18.0); Mean Corpuscular HGB CONC 33.2 g/dL (32.0-36.0); Mean Corpuscular Hemoglobin 27.8 pg (27.0-31.0); Mean Corpuscular Volume 83.7 fL (78.0-98.0); Mean Platelet Volume 11.4 fL (7.4-10.4); Platelet Count 167 thou/uL (130-400); RBC Distribution Width 13.4 % (11.5-14.5); Red Blood Cell (RBC) Count 5.52 mill/uL (4.70-6.10); White Blood Cell (WBC) Count 8.8 thou/uL (4.8-10.8)
[2019-12-13 12:30] LABS: ALT (SGPT) 28 U/L (8-55); AST (SGOT) 24 U/L (5-34); Albumin 4.3 g/dL (3.4-4.8); Alkaline Phosphatase 93 U/L (40-110); Anion Gap 13 mmol/L (10-20); BUN (Urea Nitrogen) 14 mg/dL (8.4-25.7); Bilirubin, Total 0.4 mg/dL (0.2-1.2); Calc. Creatinine Clearance 0 mL/min (70-130); Calcium 8.5 mg/dL (7.8-10.44); Carbon Dioxide 22 mmol/L (23-31); Chloride 108 mmol/L (98-107); Estimated GFR-MDRD Greater than 90; Globulin 3.3 g/dL (2.4-3.5); Glucose 118 mg/dL (80-115); Potassium 4.1 mmol/L (3.5-5.1); Protein, Total 7.6 g/dL (5.8-8.1); Sodium 139 mmol/L (136-145)
--- NOTE | 2019-12-13 13:04 | CT ---
CT abdomen and pelvis with IV contrast HISTORY: Abdominal pain. FINDINGS: At the right lateral lung base, a 0.5 cm noncalcified nodule lies immediately adjacent to a calcified granuloma. No pleural fluid. A 1.0 cm cyst is present at the anterior cortex of the right kidney. No evidence of urinary tract obs truction or inflammation. The liver, spleen, adrenal glands, and pancreas are unremarkable. No enlarged lymph nodes or free flu id. No evidence of bowel obstruction or inflammation. Appendix is unremarkable. Urinary bladder has a normal appearance. IMPRESSION : No acute abnormalities are demonstrated. Incidental-type findings as detailed above
== END 2019-12-13 13:30 | disposition short-term general hospital (02) ==
LOC: ERS 10:11
DX: R10.33 Periumbilical pain (principal); E78.1 Pure hyperglyceridemia; E11.9 Type 2 diabetes mellitus without complications; I10 Essential (primary) hypertension; F32.9 Major depressive disorder, single episode, unspecified; Z85.841 Personal history of malignant neoplasm of brain; Z79.84 Long term (current) use of oral hypoglycemic drugs; Z79.899 Other long term (current) drug therapy
CPT/HCPCS: 36415; 74177; 80053; 85025; 96374; 96375; J2405; J3010; Q9967